=== PATIENT | male | born 1960 | race Caucasian/White ===

== ENCOUNTER 2017-05-09 13:27 | Emergency (ER) | payer SELFPAY ==
--- NOTE | 2017-05-09 14:13 | EDM.PDOC ---
ED HPI GENERAL MEDICAL PROBLEM - General Chief Complaint: Back Pain or Injury Stated Complaint: BACK PAIN Time Seen by Provider: 05/09/17 14:00 Source of Information: Reports: Patient History Limitations: Reports: No Limitations - History of Present Illness INITIAL COMMENTS - FREE TEXT/NARRATIVE: HISTORY AND PHYSICAL: History of present illness: [Pt comes to ER complaining of R posterior rib pain. Stepped backward out of the passenger side of a tack picker, when he slipped and fell, hitting his right posterior ribs and shoulder blade on the running boards of the pickup parked beside him. Complains of rib pain. Denies chest pain shortness of breath and difficulty breathing. Denies any other injury. No coughing or dyspnea. Has not heard any wheezing. Denies pain over his spine and low back. He is walking well without difficulty. Denies change to bowel and bladder. Smokes daily. ] Review of systems: As per history of present illness and below otherwise all systems reviewed and negative. Past medical history: As per history of present illness and as reviewed below otherwise noncontributory. Surgical history: As per history of present illness and as reviewed below otherwise noncontributory. Social history: No reported history of drug or alcohol abuse. Family history: As per history of present illness and as reviewed below otherwise noncontributory. Physical exam: Gen.: Well-developed well-nourished male in no acute distress. HEENT: Atraumatic, normocephalic. Lungs: Clear to auscultation, breath sounds equal bilaterally. Heart: S1S2, regular rate and rhythm. Abdomen: Soft, nondistended, nontender. No guarding masses or rebound. Pelvis: Stable nontender. Genitourinary: Deferred. Rectal: Deferred. Extremities: No tenderness or step-offs over his spine. No hip tenderness with palpation. No C-spine tenderness. He is only tender with palpation over his right posterior lower ribs. No radiation of pain anteriorly. Neuro: Awake, alert, oriented. Motor and sensory unremarkable throughout. Exam nonfocal. Diagnostics: [Right posterior rib x-rays] Impression: [Right posterior rib pain] Plan: [Discussed x-ray results with patient which show no fractures, pneumothoraces or abnormalities. Recommend jxkh-tlv-[id number] analgesics and continue to monitor. He is in agreement with today's discussion. All questions are answered and concerns are addressed.] Definitive disposition and diagnosis as appropriate pending reevaluation and review of above. right shoulder,rib & lower back Pain Score (Numeric/FACES): 3 - Related Data Allergies Allergy/AdvReac Type Severity Reaction Status Date / Time No Known Allergies Allergy Verified 05/09/17 13:54 Home Meds: Home Meds . [No Known Home Meds] 05/09/17 [History] Past Medical History HEENT History: Reports: None Cardiovascular History: Reports: None Respiratory History: Reports: None Gastrointestinal History: Reports: None Genitourinary History: Reports: None Musculoskeletal History: Reports: None Neurological History: Reports: None Psychiatric History: Reports: None Endocrine/Metabolic History: Reports: None Hematologic History: Reports: None Immunologic History: Reports: None Oncologic (Cancer) History: Reports: None Dermatologic History: Reports: None - Infectious Disease History Infectious Disease History: Reports: None - Past Surgical History Head Surgeries/Procedures: Reports: None Social & Family History - Family History Family Medical History: Noncontributory - Tobacco Use Smoking Status *Q: Current Every Day Smoker Years of Tobacco use: 25 Packs/Tins Daily: 1 - Caffeine Use Caffeine Use: Reports: Coffee, Tea - Recreational Drug Use Recreational Drug Use: No ED ROS GENERAL - Review of Systems Review Of Systems: ROS reveals no pertinent complaints other than HPI. ED EXAM, UPPER BACK/NECK PAIN - Physical Exam Exam: See Below Course - Vital Signs Last Recorded V/S: Last Vital Signs Temp 97.5 F 05/09/17 13:54 Pulse 86 05/09/17 14:45 Resp 16 05/09/17 14:45 BP 98/58 L 05/09/17 14:45 Pulse Ox 96 05/09/17 14:45 - Orders/Labs/Meds Orders: Active Orders 24 hr Category Date Time Status Ribs 2V wo Chest Rt [CR] Stat Exams 05/09/17 14:03 Taken Departure - Departure Time of Disposition: 14:40 Disposition: Home, Self-Care 01 Condition: Good Clinical Impression: Rib pain on right side - Discharge Information Instructions: Rib Contusion Referrals: PCP,None [Primary Care Provider] - Forms: ED Department Discharge Additional Instructions: The following information is given to patients seen in the emergency department who are being discharged to home. This information is to outline your options for follow-up care. We provide all patients seen in our emergency department with a follow-up referral. The need for follow-up, as well as the timing and circumstances, are variable depending upon the specifics of your emergency department visit. If you don't have a primary care physician on staff, we will provide you with a referral. We always advise you to contact your personal physician following an emergency department visit to inform them of the circumstance of the visit and for follow-up with them and/or the need for any referrals to a consulting specialist. The emergency department will also refer you to a specialist when appropriate. This referral assures that you have the opportunity for follow-up care with a specialist. All of these measure are taken in an effort to provide you with optimal care, which includes your follow-up. Under all circumstances we always encourage you to contact your private physician who remains a resource for coordinating your care. When calling for follow-up care, please make the office aware that this follow-up is from your recent emergency room visit. If for any reason you are refused follow-up, please contact the [facility] emergency department at and asked to speak to the emergency department charge nurse. [facility] [address] [place] [address] Establish care with a local primary care provider and follow-up there in 2-3 days. Wgak-vln-cvoiepo analgesics and anti-inflammatories as needed for discomfort. Return to ER as needed as discussed. - My Orders Last 24 Hours: My Active Orders 05/09/17 14:03 Ribs 2V wo Chest Rt [CR] Stat - Assessment/Plan Last 24 Hours: My Active Orders 05/09/17 14:03 Ribs 2V wo Chest Rt [CR] Stat
--- NOTE | 2017-05-09 15:02 | CR ---
EXAM DATE: 05/09/17 PATIENT'S AGE: 57 Patient: TIM BALLARD Facility: [place], [place] Site . Site : [id number] Study: XRay Chest Right RIBS [id number] 2:17:25 PM Ordering Physician: Doctor Caal Final Report: CHEST 2 VIEWS INDICATION: Fever. IMPRESSION: Normal heart size and vascular pattern. Lungs are clear. No pneumothorax or pleural abnormality. Dictated by Christiano Alexander MD @ May 09 2017 2:26PM ----- ADDENDUM ----- CORRECTED REPORT 3 VIEWS chest and right rib detail INDICATION: Injury. IMPRESSION: No visualized fracture. Lungs clear. No pneumothorax. Alignments anatomic. Dictated by Christiano Alexander MD @ May 09 2017 2:32PM (Electronic Signature) Report Signed by Proxy. NEGRITA
== END 2017-05-09 14:46 | disposition home or self-care (01) ==
LOC: MW.ED 13:27
DX: R07.81 Pleurodynia (principal)
CPT/HCPCS: 71100-26-RT; 71100-RT; 99282; 99283